=== PATIENT | female | born 1930 | race African-American/Black ===

== ENCOUNTER 2018-02-28 10:43 | Emergency (ER) | payer OTHER ==
[~2018-02-28] VITALS: Ht 162.6 cm; Wt 75.0 kg
[2018-02-28 12:21] VITALS: BP 150/79
== END 2018-02-28 12:41 | disposition home or self-care (01) ==
LOC: ER 10:43
DX: I10 Essential (primary) hypertension (principal); Z88.0 Allergy status to penicillin
CPT/HCPCS: 99283